=== PATIENT | male | born 1985 | race Caucasian/White ===

== ENCOUNTER 2019-04-05 10:14 | Emergency (ER) | payer BC ==
--- NOTE | 2019-04-05 10:26 | EDM.PDOC ---
ED HPI GENERAL MEDICAL PROBLEM - General Chief Complaint: Upper Extremity Injury/Pain Stated Complaint: PAIN AND NUMBNESS ON LT SIDE Time Seen by Provider: 04/05/19 10:15 - History of Present Illness INITIAL COMMENTS - FREE TEXT/NARRATIVE: HeHISTORY AND PHYSICAL: History of present illness: Patient is a 33-year-old white male presents with concern of left shoulder and arm pain he denies any other trauma or concern he has been dealing with a variety of nonspecific symptoms that have been treated by his primary care physician and have also resulted in a neurology consultation for which he is scheduled in May. Review of systems: As per history of present illness and below otherwise all systems reviewed and negative. Past medical history: As per history of present illness and as reviewed below otherwise noncontributory. Surgical history: As per history of present illness and as reviewed below otherwise noncontributory. Social history: No reported history of drug or alcohol abuse. Family history: As per history of present illness and as reviewed below otherwise noncontributory. Physical exam: HEENT: Atraumatic, normocephalic, pupils reactive, negative for conjunctival pallor or scleral icterus, mucous membranes moist, throat clear, neck supple, nontender, trachea midline. Lungs: Clear to auscultation, breath sounds equal bilaterally, chest nontender. Heart: S1S2, regular, negative for clicks, rubs, or JVD. Abdomen: Soft, nondistended, nontender. Negative for masses or hepatosplenomegaly. Negative for costovertebral tenderness. Pelvis: Stable nontender. Genitourinary: Deferred. Rectal: Deferred. Extremities: Atraumatic, negative for cords or calf pain. Neurovascular unremarkable. Neuro: Awake, alert, oriented. Cranial nerves II through XII unremarkable. Cerebellum unremarkable. Motor and sensory unremarkable throughout. Exam nonfocal. Diagnostics: CT cervical spine Therapeutics: None Impression: #1 medical screening exam #2 rule out cervical radiculopathy Definitive disposition and diagnosis as appropriate pending reevaluation and review of above. Review of Systems - Review of Systems Review Of Systems: Comprehensive ROS is negative, except as noted in HPI. ED EXAM, GENERAL - Physical Exam Exam: See Below (See dictation) Course - Orders/Labs/Meds Orders: Active Orders 24 hr Category Date Time Status Cervical Spine wo Cont [CT] Stat Exams 04/05/19 10:17 Ordered Departure - Departure Time of Disposition: 10:25 Disposition: Home, Self-Care 01 Condition: Good Clinical Impression: Encounter for medical screening examination, Upper extremity pain - Discharge Information Referrals: PCP,Unknown [Primary Care Provider] - Additional Instructions: The following information is given to patients seen in the emergency department who are being discharged to home. This information is to outline your options for follow-up care. We provide all patients seen in our emergency department with a follow-up referral. The need for follow-up, as well as the timing and circumstances, are variable depending upon the specifics of your emergency department visit. If you don't have a primary care physician on staff, we will provide you with a referral. We always advise you to contact your personal physician following an emergency department visit to inform them of the circumstance of the visit and for follow-up with them and/or the need for any referrals to a consulting specialist. The emergency department will also refer you to a specialist when appropriate. This referral assures that you have the opportunity for followup care with a specialist. All of these measure are taken in an effort to provide you with optimal care, which includes your followup. Under all circumstances we always encourage you to contact your private physician who remains a resource for coordinating your care. When calling for followup care, please make the office aware that this follow-up is from your recent emergency room visit. If for any reason you are refused follow-up, please contact the emergency department at and asked to speak to the emergency department charge nurse. Follow-up primary medical doctor keep neurology appointment as scheduled and return as needed as discussed - My Orders Last 24 Hours: My Active Orders 04/05/19 10:17 Cervical Spine wo Cont [CT] Stat - Assessment/Plan Last 24 Hours: My Active Orders 04/05/19 10:17 Cervical Spine wo Cont [CT] Stat
--- NOTE | 2019-04-05 10:53 | CT ---
INDICATION: Pain, numbness and tingling down the left arm TECHNIQUE: CT cervical spine without contrast. COMPARISON: None available FINDINGS: There is normal cervical lordosis. The vertebral body heights are maintained in good alignment. The disc spaces are preserved. The facets are properly aligned. The neural foramina are patent bilaterally. Negative for acute fracture. The prevertebral soft tissues are within normal limits. The visualized lung apices are clear. IMPRESSION: Unremarkable CT of the cervical spine. Dictated by Gretta Guidry MD @ 04/05/2019 10:52:11 AM Please note that all CT scans at this facility use dose modulation, iterative reconstruction, and/or weight-based dosing when appropriate to reduce radiation dose to as low as reasonably achievable. Dictated by: Gretta Guidry MD @ 04/05/2019 10:52:23 (Electronically Signed)
== END 2019-04-05 11:29 | disposition home or self-care (01) ==
LOC: MW.ED 10:14
DX: M25.512 Pain in left shoulder (principal)
CPT/HCPCS: 72125; 72125-26; 99283; 99284-25